=== PATIENT | female | born 1995 | race Caucasian/White ===

== ENCOUNTER 2016-12-30 05:49 | Inpatient (IN) | payer OTHER ==
[~2016-12-30] VITALS: Ht 157.5 cm; Wt 68.0 kg
[~2016-12-30 05:49] MED LIST: IBUP-1222 PO; PREN1TAB56 PO
[2016-12-30] MEDS ORDERED: OXYTOCIN 30U/ 0.9% NaCL 500ML 500 ML IV PRN (06:04)
[2016-12-30] MEDS ORDERED: OXYTOCIN 30U/ 0.9% NaCL 500ML 500 ML IV ONE (06:04)
[2016-12-30] MEDS ORDERED: OXYTOCIN 30U/ 0.9% NaCL 500ML 500 ML ONE (06:08)
[2016-12-30] MEDS ORDERED: LIDOCAINE 1%, 20ML ONE (06:08)
[2016-12-30] MEDS ORDERED: MISOPROSTOL 200 MCG TABLET ONE (06:08)
[2016-12-30] MEDS ORDERED: NEWBORN KIT ONE (06:08)
[2016-12-30 06:14] VITALS: BP 129/73
[2016-12-30] MEDS: LACTATED RINGERS 1,000 ML IV SCH ×2 (06:15→22:04)
[2016-12-30] MEDS ORDERED: FENTANYL PF 100 MCG/2ML IV PRN (06:30)
[2016-12-30] MEDS ORDERED: ONDANSETRON 2MG/ML, 2ML IVPush PRN (06:30)
[2016-12-30] MEDS ORDERED: FENTANYL PF 100 MCG/2ML IVPush PRN (06:30)
[2016-12-30] MEDS ORDERED: FENTANYL/BUPIV./NS/PF 250 ML EPIDCONT ONE (06:57)
[2016-12-30] MEDS ORDERED: LIDOCAINE/PF 1.5%-EPI 1:200K, 30ML ONE (07:22)
[2016-12-30] MEDS ORDERED: ONDANSETRON 2MG/ML, 2ML ONE (11:03)
[2016-12-30] MEDS: D5%-LACTATED RINGERS 1,000 ML IV SCH ×2 (14:04→22:04)
[2016-12-30] MEDS ORDERED: OXYTOCIN 30U/ 0.9% NaCL 500ML 500 ML IV SCH (14:53)
[2016-12-30] MEDS ORDERED: MISOPROSTOL 200 MCG TABLET PR PRN (15:00)
[2016-12-30] MEDS ORDERED: METHYLERGONOVINE 0.2 MG/ML IM PRN (15:00)
[2016-12-30] MEDS ORDERED: DOCUSATE 100 MG CAPSULE PO PRN (15:00)
[2016-12-30] MEDS ORDERED: HYDROcodone/APAP 5/325 TABLET PO PRN ×2 (15:00)
[2016-12-30] MEDS ORDERED: ACETAMINOPHEN 325 MG TABLET PO PRN (15:00)
[2016-12-30] MEDS ORDERED: ONDANSETRON 2MG/ML, 2ML IV PRN (15:00)
[2016-12-30 17:15] VITALS: BP 107/59
[2016-12-30 19:31] VITALS: BP 119/66
[2016-12-31 00:01] VITALS: BP 95/58
[2016-12-31] MEDS: IBUPROFEN 600 MG TABLET PO PRN ×2 (00:11→06:11)
[2016-12-31 04:01] VITALS: BP 96/62
[2016-12-31] MEDS: D5%-LACTATED RINGERS 1,000 ML IV SCH (06:04)
[2016-12-31] MEDS: LACTATED RINGERS 1,000 ML IV SCH (06:04)
[2016-12-31 07:50] VITALS: BP 103/59
[2016-12-31] MEDS ORDERED: PRENATAL VIT/IRON/FA 1 EACH TABLET PO SCH (09:00)
[2016-12-31 12:00] VITALS: BP 112/71
[2016-12-31] MEDS ORDERED: DOCU-30 PO (13:54)
[2016-12-31] MEDS ORDERED: HYDR-3240 PO (13:54)
== END 2016-12-31 15:15 | disposition home or self-care (01) | DRG 775 ==
LOC: LDOP 05:49 → LDIP 06:03 → 2NW 16:40
PROVIDERS: ADMIT Student in an Organized Health Care Education/Training Program; ATTEND Student in an Organized Health Care Education/Training Program
PROC: 10E0XZZ Delivery of Products of Conception, External Approach (ICD-10-PCS; principal; 2016-12-30)
PROC: 00HU33Z Insertion of Infusion Device into Spinal Canal, Percutaneous Approach (ICD-10-PCS; 2016-12-30)
PROC: 3E0R3CZ (ICD-10-PCS; 2016-12-30)
PROC: 10907ZC Drainage of Amniotic Fluid, Therapeutic from Products of Conception, Via Natural or Artificial Opening (ICD-10-PCS; 2016-12-30)
DX: O76 Abnormality in fetal heart rate and rhythm complicating labor and delivery (principal); Z37.0 Single live birth; O77.0 Labor and delivery complicated by meconium in amniotic fluid; Z3A.39 39 weeks gestation of pregnancy; O90.81 Anemia of the puerperium; D64.9 Anemia, unspecified; Z87.440 Personal history of urinary (tract) infections; Z86.19 Personal history of other infectious and parasitic diseases
CPT/HCPCS: 36415; 85025; 86850; 86900; J2405; J3490; J3010; J7120